=== PATIENT | male | born 1995 | race Two or more races ===

== ENCOUNTER → 2020-04-19 | Outpatient (CLI) | payer SELFPAY ==
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
[2020-04-19 13:25] VITALS: BP 133/84
== END ==
LOC: RDC 12:39
PROVIDERS: ATTEND Nurse Practitioner Family
DX: Z20.828 Contact with and (suspected) exposure to other viral communicable diseases (principal); R50.9 Fever, unspecified; R05 Cough; R06.02 Shortness of breath; J02.9 Acute pharyngitis, unspecified; M79.10 Myalgia, unspecified site; R51 Headache; R19.7 Diarrhea, unspecified
CPT/HCPCS: 87070; 87880; 87635; C9803; 99201